=== PATIENT | male | born 2005 | race African-American/Black ===

== ENCOUNTER 2024-04-13 20:32 | Emergency (ER) | payer OTHER ==
[2024-04-13 21:02] VITALS: RESP 16
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
[2024-04-13] MEDS: HYDROcodone/APAP 5-325MG 1 EACH TAB PO STA (22:27)
[2024-04-14] MEDS: ACET/COD 300 MG/30 MG STARTER PACK 6 TAB BTL PO STA (00:39)
[2024-04-14 01:08] VITALS: BP 121/72; PULSE 82; TEMP 98.8
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
== END 2024-04-14 01:08 | disposition home or self-care (01) ==
LOC: EC 20:32
DX: S40.011A Contusion of right shoulder, initial encounter (principal); S93.402A Sprain of unspecified ligament of left ankle, initial encounter; V86.56XA Driver of dirt bike or motor/cross bike injured in nontraffic accident, initial encounter; Y92.410 Unspecified street and highway as the place of occurrence of the external cause
CPT/HCPCS: 99284